=== PATIENT | female | born 2000 | race Caucasian/White ===

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

== ENCOUNTER 2019-03-21 11:15 | Emergency (ER) | payer OTHER ==
[2019-03-21 11:59] VITALS: BP 136/86
--- NOTE | 2019-03-21 12:08 | UC ---
Ear Complaint HPI - HPI Summary HPI Summary: bilateral ear pain x 2 days pain is 5 out of 10 , no radiation better with Tylenol , nothing makes it worse no cold symptoms, no cough , runny nose, no fever, no chills - History of Current Complaint Chief Complaint: UCEar Time Seen by Provider: 03/21/19 12:04 Hx Obtained From: Patient Hx Last Menstrual Period: 06/28/18 ?: Yes Onset/Duration: Gradual Onset, Lasting Days - 2, Still Present Severity Initially: Mild Severity Currently: Mild Pain Intensity: 4 Aggravating Factors: Nothing Alleviating Factors: OTC Meds Associated Signs/Symptoms: Negative: Discharge, Hearing Loss, Foreign Body Sensation, Trauma to Ear, Swelling @, URI Symptoms - Allergies/Home Medications Allergies/Adverse Reactions: Allergies Allergy/AdvReac Type Severity Reaction Status Date / Time No Known Allergies Allergy Verified 03/21/19 11:58 Home Medications: Home Medications Acetaminophen [Tylenol] 1 tab PO ONCE 03/21/19 [History Confirmed 03/21/19] Pnv No.95/Ferrous Fum/Folic AC [ Caplet] 1 tab PO DAILY 03/21/19 [ History Confirmed 03/21/19] PMH/Surg Hx/FS Hx/Imm Hx Previously Healthy: Yes - Surgical History Surgical History: None - Family History Known Family History: Positive: Non-Contributory - Social History Alcohol Use: None Substance Use Type: None Smoking Status (MU): Never Smoked Tobacco Have You Smoked in the Last Year: No - Immunization History Vaccination Up to Date: Yes Review of Systems All Other Systems Reviewed And Are Negative: Yes Constitutional: Positive: Negative Skin: Positive: Negative Eyes: Positive: Negative ENT: Positive: Ear Ache. Negative: Sore Throat, Nasal Discharge, Sinus Congestion, Sinus Pain/Tenderness Respiratory: Positive: Negative Cardiovascular: Positive: Negative Is Patient Immunocompromised?: No Physical Exam Triage Information Reviewed: Yes Appearance: Well-Appearing, No Pain Distress, Well-Nourished Vital Signs: Initial Vital Signs Temp 97.9 F 03/21/19 11:55 Pulse 91 03/21/19 11:55 Resp 18 03/21/19 11:55 BP 136/86 03/21/19 11:55 Pulse Ox 99 03/21/19 11:55 Vital Signs Reviewed: Yes Eye Exam: Normal Eyes: Positive: Conjunctiva Clear ENT: Positive: Normal ENT inspection, Hearing grossly normal, Pharynx normal, TMs normal. Negative: Pharyngeal erythema, Nasal congestion, Nasal drainage, TM bulging, TM dull, TM red, Tonsillar swelling, Tonsillar exudate, Trismus, Muffled voice Ear Complaint Course/Dx - Differential Dx/Diagnosis Provider Diagnosis: Otalgia of both ears Discharge ED - Sign-Out/Discharge Documenting (check all that apply): Patient Departure All imaging exams completed and their final reports reviewed: No Studies - Discharge Plan Condition: Stable Disposition: HOME Patient Education Materials: Earache (ED) Referrals: No Primary Care Phys,NOPCP [Primary Care Provider] - 7 Days Additional Instructions: no ear infection noted - Billing Disposition and Condition Condition: STABLE Disposition: Home
== END 2019-03-21 12:09 | disposition home or self-care (01) ==
LOC: UCCORT 11:15
DX: H92.03 Otalgia, bilateral (principal)
CPT/HCPCS: 99211; G0463